=== PATIENT | male | born 1980 | race Caucasian/White ===

== ENCOUNTER 2017-05-09 07:10 | Inpatient (IN) | payer OTHER ==
[~2017-05-09] VITALS: Ht 180.3 cm; Wt 101.3 kg
[2017-05-09] VITALS (18 sets, daily range): BP systolic 76–153; BP diastolic 45–115
[~2017-05-09 07:10] MED LIST: ULTRAM50 MG PO
[2017-05-09 07:42] LABS: BASE EXCESS -9.1 mEq/L (-3 to +3); CARBOXY HGB 2.3 % (0-5); METHEMOGLOBIN 1.1 % (0-1.5)
[2017-05-09 07:43] LABS: BICARBONATE 20.9 mEq/L (22-26); COMMENTS - BLOOD GASES A+C+; DEVICE 980 PB; FI02 100 %; MECHANICAL RATE 16 resp/min; MODE AC; PCO2 69 mm Hg (35-45); PEEP 5 CM/H20; PO2 302 mm Hg (80-100); SITE RR; TIDAL VOLUME 600 ML; TOTAL RESP RATE 18 resp/min; pH 7.09 (7.35-7.45)
[2017-05-09 07:50] LABS: BASOPHIL COUNT 0.1 K/uL (0-0.1); EOSINOPHIL (%) 0 % (0-5); HEMATOCRIT 32.9 % (38.0-50.0); IMMATURE GRANULOCYTE (%) 0.8 % (0.0-0.7); IMMATURE GRANULOCYTE COUNT 0.2 K/uL; INSTRUMENT ABS NEUTROPHIL CT 20.9 K/uL; LYMPHOCYTE COUNT 1.6 K/uL (1.0-2.8); MCHC 28.6 G/DL (30.0-36.0); MCV 80.6 FL (86-99); MEAN PLAT.VOLUME 9.8 uM^3 (9.0-12.4); NEUTROPHIL COUNT 20.9 K/uL (1.8-6.4); PLATELET COUNT 194 K/uL (156-360); RBC DIS.WIDTH-CV 16.1 % (11.8-14.6); RBC DIS.WIDTH-SD 47.3 % (39-53); RED BLOOD COUNT 4.08 M/uL (4.00-5.50); WHITE BLOOD COUNT 23.7 K/uL (4.1-10.2)
[2017-05-09 08:01] LABS: INTER. NORMALIZED RATIO 1.3; PROTHROMBIN TIME 14.2 SEC (10.2-12.9)
[2017-05-09 08:04] LABS: PTT 27.4 SEC (25-37)
[2017-05-09 08:29] LABS: TROP-I INTERPRETATION NEGATIVE; TROPONIN-I 0.04 ng/mL (0.0-0.30)
[2017-05-09 08:44] LABS: ALKALINE PHOSPHATASE 82 IU/L (3-129); ANION GAP 15 MEQ/L (2-14); CHLORIDE 102 MEQ/L (99-109); GFR ESTIMATE (CALCULATED) 28 mL/min/; GLUCOSE 80 mg/dL (70-99); POTASSIUM 5.3 MEQ/L (3.7-5.4); SAMPLE HEMOLYSIS CHECK 0; SAMPLE ICTERIC CHECK 0; SAMPLE LIPEMIA CHECK 0; SODIUM 139 MEQ/L (136-147); TOTAL BILIRUBIN 0.6 MG/DL (0.0-1.0); TOTAL CK 2669 IU/L (1-294); UREA NITROGEN (BUN) 25 mg/dL (9-23)
[2017-05-09 08:45] LABS: CREATINE KINASE 2669 IU/L (1-294)
[2017-05-09 09:29] LABS: BASE EXCESS -10.7 mEq/L (-3 to +3); BICARBONATE 16.8 mEq/L (22-26); CARBOXY HGB 1.9 % (0-5); METHEMOGLOBIN 1.2 % (0-1.5)
[2017-05-09 09:30] LABS: COMMENTS - BLOOD GASES A+C+; DEVICE 980 PB; FI02 50 %; MECHANICAL RATE 22 resp/min; MODE AC; PCO2 44 mm Hg (35-45); PEEP 5 CM/H20; PO2 103 mm Hg (80-100); SITE RR; TIDAL VOLUME 600 ML; TOTAL RESP RATE 22 resp/min; pH 7.19 (7.35-7.45)
[2017-05-09 09:43] LABS: SERUM ETHYL ALCOHOL < 10 mg/dL
[2017-05-09 09:43] LABS: ADD MEDTOX COMMENT Y; AMPHETAMINE NEGATIVE (500 ng/mL); BARBITURATES NEGATIVE (200 ng/mL); BENZODIAZEPINES NEGATIVE (150 ng/mL); COCAINE NEGATIVE (150 ng/mL); INTERNAL CONTROLS VALID? YES; METHADONE NEGATIVE (200 ng/mL); METHAMPHETAMINE NEGATIVE (500 ng/mL); OPIATES (MORPHINE) PRESUMPTIVE POSITIVE (100 ng/mL); OXYCODONE NEGATIVE (100 ng/mL); PHENCYCLIDINE NEGATIVE (25 ng/mL); PROPOXYPHENE NEGATIVE (300 ng/mL); THC CANNABINOIDS NEGATIVE (50 ng/mL); TRICYCLIC ANTIDEPRESSANTS NEGATIVE (300 ng/mL)
[2017-05-09 10:00] LABS: CK-MB 50.3 ng/mL (0.0-4.9)
[2017-05-09] MEDS ORDERED: TIZANIDINE HCL4 MG PO (10:34)
[2017-05-09] MEDS ORDERED: ESCITALOPRAM OX20 MG PO (10:36)
[2017-05-09] MEDS ORDERED: ACETAMINOPHEN PO (10:37)
[2017-05-09 13:18] LABS: ADD MIUA? YES; BILIRUBIN NEGATIVE; BLOOD LARGE; COLOR YELLOW ((YELLOW)); GLUCOSE (STRIP) NEGATIVE; KETONES NEGATIVE; LEUKOCYTES NEGATIVE; NITRITE NEGATIVE; PROTEIN (STRIP) 100; UROBILINOGEN 0.2 MG/DL (0.2-1.0)
[2017-05-09 13:26] LABS: BACTERIA RARE /HPF; EPITHELIAL CELLS RARE /HPF; HYALINE CASTS 0-5 /LPF; MUCUS TRACE /LPF; RED BLOOD CELLS 0-5 /HPF (0-5); UCUL ADDED? NO; WHITE BLOOD CELLS 0-5 /HPF (0-5)
[2017-05-09 13:28] LABS: GRANULAR CASTS 20-25 /LPF
[2017-05-09 13:48] LABS: METH RESISTANT S AUREUS PCR NEGATIVE (NEGATIVE); PROBE CHECK PASS; SPECIMEN PROCESSING CONTROL PASS
[2017-05-09 14:11] LABS: MAGNESIUM 2.2 mg/dl (1.3-2.7)
[2017-05-09 15:26] LABS: POINT-OF-CARE METER ID UU13113748
[2017-05-09 16:39] LABS: BASE EXCESS -6.3 mEq/L (-3 to +3); BICARBONATE 20.6 mEq/L (22-26); CARBOXY HGB 2.2 % (0-5); METHEMOGLOBIN 1.6 % (0-1.5); PCO2 47 mm Hg (35-45); PO2 78 mm Hg (80-100); pH 7.25 (7.35-7.45)
[2017-05-09 16:40] LABS: COMMENTS - BLOOD GASES A+C+; DEVICE VM; FI02 50 %; O2 FLOW 12 L/MIN; SITE RR; TOTAL RESP RATE 14 resp/min
[2017-05-09 18:05] LABS: HEMATOCRIT 25.1 % (38.0-50.0); MCV 80.2 FL (86-99)
[2017-05-09 18:30] LABS: TROP-I INTERPRETATION POSITIVE; TROPONIN-I 0.93 ng/mL (0.0-0.30)
[2017-05-09 18:32] LABS: CK-MB 240.3 ng/mL (0.0-4.9)
[2017-05-09 18:38] LABS: ANION GAP 12 MEQ/L (2-14); CHLORIDE 109 MEQ/L (99-109); CREATINE KINASE 16006 IU/L (1-294); GFR ESTIMATE (CALCULATED) 35 mL/min/; GLUCOSE 116 mg/dL (70-99); POTASSIUM 5.3 MEQ/L (3.7-5.4); SAMPLE HEMOLYSIS CHECK 0; SAMPLE ICTERIC CHECK 0; SAMPLE LIPEMIA CHECK 0; SODIUM 141 MEQ/L (136-147); TOTAL CK 16006 IU/L (1-294); UREA NITROGEN (BUN) 30 mg/dL (9-23)
[2017-05-09 23:55] LABS: POINT-OF-CARE METER ID UU13113748
[2017-05-10] VITALS (26 sets, daily range): BP systolic 90–147; BP diastolic 53–97
[2017-05-10 01:00] LABS: TROP-I INTERPRETATION POSITIVE
[2017-05-10 01:07] LABS: CK-MB 199.4 ng/mL (0.0-4.9)
[2017-05-10 01:51] LABS: TOTAL CK 27543 IU/L (1-294)
[2017-05-10 01:55] LABS: CREATINE KINASE 27543 IU/L (1-294)
[2017-05-10 04:59] LABS: MAGNESIUM 1.6 mg/dL (1.3-2.7)
[2017-05-10 05:07] LABS: HEMATOCRIT 27.9 % (38.0-50.0); MCH 24.6 PG (29.0-34.0); MCHC 31.2 G/DL (30.0-36.0); MCV 78.8 FL (86-99); RBC DIS.WIDTH-CV 16.5 % (11.8-14.6); RBC DIS.WIDTH-SD 47.8 % (39-53); RED BLOOD COUNT 3.54 M/uL (4.00-5.50); WHITE BLOOD COUNT 11.4 K/uL (4.1-10.2)
[2017-05-10 05:08] LABS: TROP-I INTERPRETATION POSITIVE
[2017-05-10 05:16] LABS: CK-MB 114.7 ng/mL (0.0-4.9)
[2017-05-10 05:17] LABS: TROPONIN-I 0.98 ng/mL (0.0-0.30)
[2017-05-10 05:46] LABS: CREATINE KINASE 26717 IU/L (1-294); TOTAL CK 26717 IU/L (1-294)
[2017-05-10 06:02] LABS: BASOPHIL COUNT 0.1 K/uL (0-0.1); EOSINOPHIL (%) 0.8 % (0-5); EOSINOPHIL COUNT 0.1 K/uL (0-0.3); IMMATURE GRANULOCYTE (%) 1.1 % (0.0-0.7); IMMATURE GRANULOCYTE COUNT 0.1 K/uL; INSTRUMENT ABS NEUTROPHIL CT 9.8 K/uL; MEAN PLAT.VOLUME 11.1 uM^3 (9.0-12.4); MONOCYTE (%) 3.3 % (3-12); MONOCYTE COUNT 0.4 K/uL (0-0.8); NEUTROPHIL (%) 85.9 % (45-76); NEUTROPHIL COUNT 9.8 K/uL (1.8-6.4)
[2017-05-10 06:19] LABS: PLATELET COUNT 94 K/uL (156-360)
[2017-05-10 06:41] LABS: POINT-OF-CARE METER ID UU14162636
[2017-05-10 10:23] LABS: ADD MIUA? YES; BILIRUBIN NEGATIVE; BLOOD LARGE; COLOR YELLOW ((YELLOW)); GLUCOSE (STRIP) >=500; KETONES 5; LEUKOCYTES NEGATIVE; NITRITE NEGATIVE; PROTEIN (STRIP) 30; SPECIFIC GRAVITY 1.022 (1.000-1.030); UROBILINOGEN 0.2 MG/DL (0.2-1.0)
[2017-05-10 10:53] LABS: BACTERIA RARE /HPF; EPITHELIAL CELLS RARE /HPF; MUCUS TRACE /LPF; RED BLOOD CELLS 0-5 /HPF (0-5); WHITE BLOOD CELLS 0-5 /HPF (0-5)
[2017-05-10 11:58] LABS: MCV 78.4 FL (86-99)
[2017-05-10 11:59] LABS: POINT-OF-CARE METER ID UU14162636
[2017-05-10 12:24] LABS: CHLORIDE 106 mEq/L (99-109); SODIUM 140 mEq/L (136-147)
[2017-05-10 12:26] LABS: GLUCOSE 120 mg/dL (70-99); POTASSIUM 4.1 mEq/L (3.7-5.4)
[2017-05-10 12:27] LABS: ANION GAP 11 MEQ/L (2-14)
[2017-05-10 12:30] LABS: GFR ESTIMATE (CALCULATED) 46 mL/min/
[2017-05-10 12:31] LABS: UREA NITROGEN (BUN) 31 mg/dL (9-23)
[2017-05-10 12:35] LABS: TROP-I INTERPRETATION POSITIVE; TROPONIN-I 0.66 ng/mL (0.0-0.30)
[2017-05-10 12:36] LABS: CK-MB 80.2 ng/mL (0.0-4.9)
[2017-05-10 13:42] LABS: CREATINE KINASE 22260 IU/L (1-294); TOTAL CK 22260 IU/L (1-294)
[2017-05-10 20:17] LABS: BASE EXCESS 10.1 mEq/L (-3 to +3); BICARBONATE 33.2 mEq/L (22-26); COMMENTS - BLOOD GASES A+C+; DEVICE NCH; METHEMOGLOBIN 1.4 % (0-1.5); O2 FLOW 10 L/MIN; PCO2 38 mm Hg (35-45); PO2 63 mm Hg (80-100); SITE RR; pH 7.55 (7.35-7.45)
[2017-05-11] VITALS (12 sets, daily range): BP systolic 129–165; BP diastolic 75–110
[2017-05-11 06:09] LABS: BASOPHIL COUNT 0.1 K/uL (0-0.1); EOSINOPHIL (%) 0.6 % (0-5); EOSINOPHIL COUNT 0.1 K/uL (0-0.3); HEMATOCRIT 31.7 % (38.0-50.0); IMMATURE GRANULOCYTE (%) 1.6 % (0.0-0.7); IMMATURE GRANULOCYTE COUNT 0.2 K/uL; INSTRUMENT ABS NEUTROPHIL CT 12.1 K/uL; LYMPHOCYTE COUNT 0.9 K/uL (1.0-2.8); MCHC 31.2 G/DL (30.0-36.0); MCV 76.9 FL (86-99); MEAN PLAT.VOLUME 11.7 uM^3 (9.0-12.4); MONOCYTE (%) 3.3 % (3-12); MONOCYTE COUNT 0.5 K/uL (0-0.8); NEUTROPHIL (%) 87.7 % (45-76); NEUTROPHIL COUNT 12.1 K/uL (1.8-6.4); PLATELET COUNT 119 K/uL (156-360); RBC DIS.WIDTH-CV 16.4 % (11.8-14.6); RED BLOOD COUNT 4.12 M/uL (4.00-5.50); WHITE BLOOD COUNT 13.8 K/uL (4.1-10.2)
[2017-05-11 06:47] LABS: ANION GAP 10 MEQ/L (2-14); CHLORIDE 98 MEQ/L (99-109); CREATINE KINASE 18025 IU/L (1-294); GFR ESTIMATE (CALCULATED) > 59 mL/min/; GLUCOSE 114 mg/dL (70-99); POTASSIUM 3.4 MEQ/L (3.7-5.4); SAMPLE HEMOLYSIS CHECK 0; SAMPLE ICTERIC CHECK 0; SAMPLE LIPEMIA CHECK 0; SODIUM 140 MEQ/L (136-147); UREA NITROGEN (BUN) 22 mg/dL (9-23)
[2017-05-12] VITALS (10 sets, daily range): BP systolic 129–167; BP diastolic 70–99
[2017-05-12 04:49] LABS: BASOPHIL COUNT 0.1 K/uL (0-0.1); EOSINOPHIL COUNT 0.2 K/uL (0-0.3); IMMATURE GRANULOCYTE (%) 0.8 % (0.0-0.7); IMMATURE GRANULOCYTE COUNT 0.1 K/uL; INSTRUMENT ABS NEUTROPHIL CT 8.2 K/uL; LYMPHOCYTE COUNT 1.4 K/uL (1.0-2.8); MCH 24.5 PG (29.0-34.0); MCHC 31.9 G/DL (30.0-36.0); MCV 76.7 FL (86-99); MONOCYTE (%) 6.7 % (3-12); MONOCYTE COUNT 0.7 K/uL (0-0.8); NEUTROPHIL (%) 77.1 % (45-76); NEUTROPHIL COUNT 8.2 K/uL (1.8-6.4); RBC DIS.WIDTH-CV 16.6 % (11.8-14.6); RBC DIS.WIDTH-SD 46.3 % (39-53); RED BLOOD COUNT 4.04 M/uL (4.00-5.50); WHITE BLOOD COUNT 10.6 K/uL (4.1-10.2)
[2017-05-12 04:58] LABS: CHLORIDE 105 mEq/L (99-109); SODIUM 138 mEq/L (136-147)
[2017-05-12 05:00] LABS: GLUCOSE 102 mg/dL (70-99)
[2017-05-12 05:01] LABS: ANION GAP 11 MEQ/L (2-14)
[2017-05-12 05:04] LABS: GFR ESTIMATE (CALCULATED) > 59 mL/min/
[2017-05-12 05:05] LABS: UREA NITROGEN (BUN) 22 mg/dL (9-23)
[2017-05-12 05:35] LABS: MAGNESIUM 2.5 mg/dL (1.3-2.7); POTASSIUM 4.5 mEq/L (3.7-5.4)
[2017-05-12 05:39] LABS: MEAN PLAT.VOLUME 11.5 uM^3 (9.0-12.4); PLAT.SUFFICIENCY DECREASED; PLATELET COUNT 105 K/uL (156-360)
[2017-05-12 06:28] LABS: CREATINE KINASE 16058 IU/L (1-294)
[2017-05-13 03:04] VITALS: BP 138/92
[2017-05-13 07:19] VITALS: BP 155/103
[2017-05-13 07:23] LABS: BASOPHIL COUNT 0.1 K/uL (0-0.1); EOSINOPHIL (%) 3.3 % (0-5); EOSINOPHIL COUNT 0.3 K/uL (0-0.3); HEMATOCRIT 28.6 % (38.0-50.0); IMMATURE GRANULOCYTE (%) 0.9 % (0.0-0.7); IMMATURE GRANULOCYTE COUNT 0.1 K/uL; INSTRUMENT ABS NEUTROPHIL CT 5.9 K/uL; LYMPHOCYTE COUNT 1.5 K/uL (1.0-2.8); MCH 24.7 PG (29.0-34.0); MCHC 31.5 G/DL (30.0-36.0); MCV 78.6 FL (86-99); MEAN PLAT.VOLUME 11.9 uM^3 (9.0-12.4); MONOCYTE COUNT 1.1 K/uL (0-0.8); NEUTROPHIL (%) 66.3 % (45-76); NEUTROPHIL COUNT 5.9 K/uL (1.8-6.4); PLATELET COUNT 135 K/uL (156-360); RBC DIS.WIDTH-CV 16.9 % (11.8-14.6); RBC DIS.WIDTH-SD 47.9 % (39-53); RED BLOOD COUNT 3.64 M/uL (4.00-5.50)
[2017-05-13 07:42] LABS: ANION GAP 8 MEQ/L (2-14); CHLORIDE 107 MEQ/L (99-109); GFR ESTIMATE (CALCULATED) > 59 mL/min/; GLUCOSE 101 mg/dL (70-99); SAMPLE HEMOLYSIS CHECK 0; SAMPLE ICTERIC CHECK 0; SAMPLE LIPEMIA CHECK 0; SODIUM 140 MEQ/L (136-147); UREA NITROGEN (BUN) 21 mg/dL (9-23)
[2017-05-13 07:44] LABS: POTASSIUM 3.5 MEQ/L (3.7-5.4)
[2017-05-13 08:47] VITALS: BP 157/96
[2017-05-13 10:38] LABS: CREATINE KINASE 8160 IU/L (1-294)
[2017-05-13] MEDS ORDERED: DUONEB 2.5-0.5 M3 ML AEROSOL (11:46)
[2017-05-13] MEDS ORDERED: CLEOCIN300 MG PO (11:47)
== END 2017-05-13 12:43 | disposition home or self-care (01) | DRG 917 ==
LOC: EME 07:10 → 4WEST 10:18 → EDOF 10:18 → ENRESERV 10:19 → 4WEST 11:49 → ENRESERV 05-12 09:55 → 4EAST 05-12 10:54
PROVIDERS: Emergency Medicine; Internal Medicine; Internal Medicine Critical Care Medicine; Internal Medicine Gastroenterology; Internal Medicine Nephrology
DX: T40.2X1A Poisoning by other opioids, accidental (unintentional), initial encounter (principal); N17.9 Acute kidney failure, unspecified; J69.0 Pneumonitis due to inhalation of food and vomit; M62.82 Rhabdomyolysis; G92 Toxic encephalopathy; F11.10 Opioid abuse, uncomplicated; F17.200 Nicotine dependence, unspecified, uncomplicated; F32.9 Major depressive disorder, single episode, unspecified; J96.01 Acute respiratory failure with hypoxia; E87.2 Acidosis; D64.9 Anemia, unspecified; K92.2 Gastrointestinal hemorrhage, unspecified; K76.0 Fatty (change of) liver, not elsewhere classified; K29.70 Gastritis, unspecified, without bleeding
CPT/HCPCS: 36600; 70450; 70551; 71010; 72131; 74176; 80048; 80048 91; 80053; 80069; 81003; 82550; 82550 91; 82553; 82803; 82948; 83605; 83735; 84100; 84484; 84999; 85014; 85018; 85025; 85610; 85730; 86850; 86900; 86901; 86920; 87040; 87070; 87077; 87086; 87147; 87186; 87205; 87641; 90832; 92523 GN; 93005; 93306; 94002; 94010; 94640; 94640 76; 94667; 94668; 94760; 94799; 99202; 99281; 99285; C1751; C9113; G0480; J0330; J0692; J1170; J1815; J1885; J1940; J2060; J2250; J3010; J3370; J3475; J7040; J7050; J7070; J7120; P9016; P9045; S0030